=== PATIENT | female | born 1975 | race Caucasian/White ===

== ENCOUNTER 2017-03-23 18:27 | Emergency (ER) | payer OTHER ==
--- NOTE | 2017-03-23 18:57 | EDPHY ---
H & P - Social History Smoking Status: Former smoker Time Seen by Provider: 03/23/17 18:55 HPI/ROS: CHIEF COMPLAINT: Flu-like symptoms HISTORY OF PRESENT ILLNESS: 41-year-old immunocompetent female in the ER with 2 children all which are complaining of flu-like symptoms since this morning. No influenza vaccination this season. The mother children visiting from [facility]. They live in [place] free [place] of [facility], works at the [employer] there. Complaining of flu-like symptoms including fever, chills, myalgias. Denies: Cough, chest pain, sore throat, back or flank pain, urinary abnormality.. Mother states that they live in a [place] [facility] [place] in [facility], however typhoid cases have been reported there. REVIEW OF SYSTEMS: A ten point review of systems was performed and is negative with the exception of the items mentioned in the HPI PAST MEDICAL & SURGICAL HISTORY: No influenza vaccination. No history of chronic pulmonary disease. SOCIAL HISTORY: visiting from [facility] PHYSICAL EXAM (Prior to examination, patient consented to physical exam, hands were washed and my usual and customary physical exam procedures followed) 1) GENERAL: Well-developed, well-nourished, alert and oriented. Appears to be in no acute distress. 2) HEAD: Normocephalic, atraumatic 3) HEENT: Pupils equal, round, reactive to light bilaterally. Sclera anicteric. Nasopharynx, oropharynx, clear, no lesions. No tonsillar enlargement or exudate. No trismus no drooling. Ears bilaterally with normal tympanic membranes. 4) NECK: Full range of motion, no meningeal signs. No adenopathy. 5) LUNGS: Clear auscultation bilaterally, no wheezes, no rhonchi, no retractions. 6) HEART: Regular rate and rhythm, no murmur, no heave, no gallop. 7) ABDOMEN: No guarding, no rebound, no focal tenderness, negative McBurney's, negative Colmenares's, negative Rovsing's, negative peritoneal sign, 8) MUSCULOSKELETAL: Moving all extremities, no focal areas of tenderness, no obvious trauma. No peripheral edema or discoloration. 9) BACK: No CVA tenderness, no midline vertebral tenderness, no fluctuance, no step-off, no obvious trauma, no visual or palpable abnormality. 10) SKIN: No rash, no petechiae. 11) Psychiatric: no agitation. DIFFERENTIAL DIAGNOSIS: In no particular include but limited to influenza, bronchitis, pneumonia (Sonja Ortega) Constitutional: Initial Vital Signs Temperature (C) 37.1 C 03/23/17 19:21 Heart Rate 97 03/23/17 19:21 Respiratory Rate 20 03/23/17 19:21 Blood Pressure 112/78 03/23/17 19:21 O2 Sat (%) 96 03/23/17 19:21 O2 Delivery Mode Room Air Allergies/Adverse Reactions: No Known Allergies Allergy (Unverified 03/08/14 11:45) Home Medications: Medication Instructions Recorded Oseltamivir Phosphate [Tamiflu] 75 mg PO BIDMEAL 5 Days cap 03/23/17 Medical Decision Making ED Course/Re-evaluation: Doubt malaria, doubt typhoid fever in the presence of multiple family member sick with similar URI and flu-like symptoms. Care of patient under supervision of secondary supervising physician Dr Almeida . The patient's daughter who was symptomatic initially by few hours was tested at the mother's request which is subsequent positive for influenza A. The mother would like siblings and her to be treated with Tamiflu. No respiratory distress. I think she can be treated on outpatient basis. Contact precautions provided. Usual and customary discharge precautions instructions provided. (Sonja Ortega) The patient was evaluated and managed by the physician hearing and speech assistant. I have reviewed this chart and I agree with the findings and plan of care as documented , as indicated by my signature. I am the secondary supervising physician. ( Ayaka Almeida) Departure - Departure Disposition: Home, Routine, Self-Care Clinical Impression: Influenza A Condition: Good Instructions: Influenza (ED) Additional Instructions: Return to the emergency department immediately for change in breathing habits, change in voice, change in swallowing habits, change in mental status, or any other symptoms that concern you. Referrals: Gilberto Moeller MD [[facility] [place] Primary Care Provider] - 2-3 days, call for appt. Prescriptions: Oseltamivir Phosphate [Tamiflu] 75 mg PO BIDMEAL 5 Days cap
[2017-03-23 19:24] VITALS: PULSE 97; TEMP 98.8
[2017-03-23 21:10] VITALS: BP 97/63; RESP 18; O2SAT 97
== END 2017-03-23 20:40 | disposition home or self-care (01) ==
DX: J10.1 Influenza due to other identified influenza virus with other respiratory manifestations (principal); Z87.891 Personal history of nicotine dependence